=== PATIENT | female | born 1940 | race Caucasian/White ===

== ENCOUNTER → 2016-12-03 | Outpatient (CLI) | payer MEDICARE, OTHER ==
[~2016-12-03] MED LIST: ASA CHILDREN'S81 MG PO; BACITRACIN15 G1 TP; CALTRATE 600+D1 EAC2 PO; CARDURA DPS2 MG PO; COLACE-DPS100 MG PO; FLEXERIL DPS5 MG PO; HYDROCODONE 5MG/5 MG PO; HYDRODIURIL-DPS25 MG PO; MILK OF MAGNESI10 ML PO; MONTELUKAST SOD10 MG PO; PRESERVISION A1 EACH PO; SENOKOT S1 TAB PO; SURFAK DPS240 MG PO; TYLENOL DPS325 MG PO; ULTRAM DPS50 MG PO; VASOTEC DPS20 MG PO
== END | disposition home or self-care (01) ==
LOC: RAD.S 12:50
DX: M54.5 Low back pain (principal); M54.16 Radiculopathy, lumbar region; R26.9 Unspecified abnormalities of gait and mobility; M79.604 Pain in right leg; M79.605 Pain in left leg